=== PATIENT | male | born 1950 | race Caucasian/White ===

== ENCOUNTER 2017-12-24 19:40 | Emergency (ER) | payer OTHER, MEDICAID ==
[~2017-12-24] VITALS: Ht 175.3 cm; Wt 83.9 kg
[2017-12-24 19:45] VITALS: BP_SYST 123
[2017-12-24] MEDS ORDERED: METO50TA3 PO (20:04)
[2017-12-24 20:36] LABS: BASOPHILS # (AUTO) 0.2 K/uL (0.0-0.2); BASOPHILS % (AUTO) 1.3 % (0.0-2.0); HEMATOCRIT 38.3 % (36-54); HEMOGLOBIN 13.1 g/dL (14.0-18.0); LYMPHOCYTES # (AUTO) 0.5 K/uL (1.0-5.5); LYMPHOCYTES % (AUTO) 3.8 % (20.5-51.5); MEAN CORPUSCULAR HEMOGLOBIN 34 pg (27-31); MEAN CORPUSCULAR HGB CONC 34 % (32-36); MEAN CORPUSCULAR VOLUME 99 fL (79.0-98.0); MONOCYTES # (AUTO) 0.5 K/uL (0.0-1.0); MONOCYTES % (AUTO) 4.2 % (1.7-9.3); NEUTROPHILS # (AUTO) 11.9 K/uL (1.8-7.7); NEUTROPHILS % (AUTO) 90.7 % (40.0-70.0); PLATELET COUNT (AUTO) 234 K/uL (130-430); RED BLOOD CELL COUNT(AUTO) 3.89 MIL/uL (4.2-6.2); RED CELL DISTRIBUTION WIDTH 12.6 % (9.0-15.0); WHITE BLOOD COUNT (AUTO) 13.1 K/uL (4.8-10.8)
[2017-12-24 20:44] LABS: CALCIUM 9.1 mg/dL (8.4-11.0); CREATININE 0.99 mg/dL (0.55-1.30); POTASSIUM 4.7 mmol/L (3.5-5.1)
[2017-12-24 20:49] LABS: ALBUMIN 3.3 g/dL (3.4-4.8); TOTAL BILIRUBIN 0.8 mg/dL (0.0-1.0)
[2017-12-24 21:10] VITALS: BP_SYST 116
== END 2017-12-24 21:10 | disposition home or self-care (01) ==
LOC: SED 19:40
DX: K64.9 Unspecified hemorrhoids (principal); D64.9 Anemia, unspecified; I10 Essential (primary) hypertension
CPT/HCPCS: 36415; 80053; 85025; 99284

== ENCOUNTER 2017-12-30 16:12 | Emergency (ER) | payer OTHER, MEDICAID ==
[~2017-12-30] VITALS: Ht 175.3 cm; Wt 83.9 kg
[~2017-12-30 16:12] MED LIST: METO50TA3 PO
[2017-12-30 16:18] VITALS: BP_SYST 167
[2017-12-30] MEDS ORDERED: DIPH-TET Vacc 0.5 ML VIAL I.M. ONE (16:45)
[2017-12-30] MEDS ORDERED: KETOROLAC TROMETHAMINE 60 MG/2 ML VIAL IM ONE (18:00)
[2017-12-30 18:05] VITALS: BP_SYST 139
== END 2017-12-30 18:05 | disposition home or self-care (01) ==
LOC: SED 16:12
DX: R07.89 Other chest pain (principal); I10 Essential (primary) hypertension; Z90.89 Acquired absence of other organs
CPT/HCPCS: 36415; 84484; 90714; 93005; 99285; J1885